=== PATIENT | male | born 1965 | race Caucasian/White ===

== ENCOUNTER 2019-04-13 14:03 | Emergency (ER) | payer MEDICAID ==
[~2019-04-13] VITALS: Ht 172.7 cm; Wt 86.7 kg
[2019-04-13 14:09] VITALS: BP 146/93
--- NOTE | 2019-04-13 14:19 | NUR ---
53 Y MALE BIB SELF C/O HEMATURIA X3 DAYS. PT REPORTS HEMATURIA AND BURNING SENSATION WHEN URINATING. - N/V/D OR FEVER. STATES HE HAS LOWER BACK PAIN THAT HAS BEEN CONTINUOUS. DENIES URINE ODOR. -ITCHING. PAIN 04/16. VSS. [id number]. BED IS DOWN, LOCKED, BED RAIL X 1, ERMD TO SEE PT. PMH- NONE
--- NOTE | 2019-04-13 14:22 | NUR ---
PT AMB TO RESTROOM WITH STEADY GAIT
--- NOTE | 2019-04-13 14:52 | NUR ---
DR PERZE AT BEDSIDE
[2019-04-13 15:42] LABS: APPEARANCE,URINE CLEAR (CLEAR); BILIRUBIN,URINE NEGATIVE (NEGATIVE); BLOOD, URINE 1+ (NEGATIVE); COLOR,URINE YELLOW (YELLOW); LEUKOCYTE ESTERASE ,URINE NEGATIVE (NEGATIVE); NITRITE, URINE NEGATIVE (NEGATIVE); UGLUCOSE NEGATIVE (NEGATIVE)
[2019-04-13 15:46] LABS: BARBITURATE, URINE NEG. ng/ml (NEG <=200); BENZODIAZEPINE, URINE NEG. ng/mL (NEG <=200); CANNABINOID, URINE NEG. ng/mL (NEG <=50); COCAINE, URINE NEG. ng/mL (NEG <=300); OPIATE, URINE NEG. ng/mL (NEG <=2000); PHENCYCLIDINE SCREEN,URINE NEG. ng/mL (NEG <=25)
[2019-04-13 16:01] LABS: RBC,URINE 11-20 (MOD) /HPF (0-5); WBC,URINE 0-5 /HPF (0-5)
--- NOTE | 2019-04-13 16:10 | NUR ---
DR PEREZ RE-EVALUATING PT
[2019-04-13] MEDS ORDERED: LEVOFLOXACIN 500 MG TAB PO ONE (16:15)
[2019-04-13 16:45] VITALS: BP 148/89
--- NOTE | 2019-04-13 16:45 | NUR ---
Patient discharged with v/s stable. Written and verbal after care instructions given and explained. Patient alert, oriented and verbalized understanding of instructions. Ambulatory with steady gait. All questions addressed prior to discharge. ID band removed. Patient advised to follow up with PMD. Rx of CIPRO given. Patient educated on indication of medication including possible reaction and side effects. Opportunity to ask questions provided and answered. PT GIVEN EXCUSE FROM WORK.
== END 2019-04-13 16:45 | disposition home or self-care (01) ==
LOC: MED 14:03
DX: R31.9 Hematuria, unspecified (principal); R30.0 Dysuria
CPT/HCPCS: 80305; 81001; 99284